=== PATIENT | female | born 1970 | race Caucasian/White ===

== ENCOUNTER 2016-09-29 18:09 | Emergency (ER) | payer OTHER ==
[~2016-09-29 18:09] MED LIST: ALBUTEROL SULF8.5 G1 INH; ALBUTEROL2.5 MG/0.5 INH; AMOXICILLIN PO; AMOXICILLIN500 M1 PO; ANTIVERT PO; ATARAX PO; ATIVAN PO; ATIVAN2 M1 PO; ATIVAN2 MG PO; BENADRYL PO; BENTYL20 MG PO; BENZONATATE PO; BETAMETHASONE D50 GM TOP; CATAFLAM50 MG PO; CLARITIN10 MG PO; CYMBALTA PO; ELIMITE60 GM TOP; FAMOTIDINE20 MG PO; FLEXERIL PO; FLEXERIL10 MG PO; FLONASE16 GM; HYCODAN60 ML 5MG/; IBUPROFEN800 MG PO; KEFLEX PO; LORTAB 5/500 TA1 TA1 PO; MAGIC MOUTH WASH; MEDROL DOSEPAK4 MG; MOUTHWASH180 ML PO; NEXIUM PO; OXYCODONE APAP PO; PHENERGAN VC W120 M1 PO; PHENERGAN/CODEIN5 ML PO; PHENERGAN25 M1 PO; PHENERGAN25 MG PO; PREDNISONE PO; PREDNISONE50 MG PO; PRISTIQ PO; PRISTIQ100 MG PO; RONDEC-DM ORAL30 ML PO; SILVADENE TOP; ULTRAM PO; VICODIN 5-3001 EACH PO; VICODIN 5/1 TAB 5/50 PO; VOLTAREN75 MG PO; ZITHROMAX PO; ZITHROMAX1 G/PKT PO; ZITHROMAX100 MG/5 M PO; ZOFRAN ODT4 MG SL; ZYRTEC-D TABLE1 EACH PO; ZYRTEC1 MG/1 ML PO
== END 2016-09-29 19:00 | disposition home or self-care (01) ==
LOC: SED 18:09
DX: H66.91 Otitis media, unspecified, right ear (principal); H60.91 Unspecified otitis externa, right ear; J32.9 Chronic sinusitis, unspecified; F41.9 Anxiety disorder, unspecified; F32.9 Major depressive disorder, single episode, unspecified; F17.200 Nicotine dependence, unspecified, uncomplicated; Z98.51 Tubal ligation status
CPT/HCPCS: 99282